=== PATIENT | female | born 1970 | race Caucasian/White ===

== ENCOUNTER → 2016-11-22 | Outpatient (CLI) | payer OTHER ==
--- NOTE | 2016-11-22 08:47 | MA ---
Screening Digital Mammogram Clinical Indications: Routine screening. Technique: Standard cephalocaudal and mediolateral oblique projections are obtained. This examinati on is processed by the [facility] computer aided detection system. Comparison: December 2010, February 2012, March 2013, April 2014, October 2015 (screening and diagnostic) Breast density: B; There are scattered fibroglandular densities. Findings: CAD was reviewed. There is new asymmetrical density in the right axillary segment seen only on the oblique lateral view. On the current CC view there is again asymmetrical density in the outer right breast which returned to normal on spot views performed on November 18, 2015.. Left breast is s table and unremarkable. Impression: Asymmetrical densities in the right axillary segment and outer right breast.. BI-RADS 0. Additional imaging right breast required.. Recommendation: Spot compression views. If persistent, attempt to localize in the orthogonal plane m ammographically, and then proceed to ultrasound for further localization and characterization. [facility] will send a result letter to the patient. Negative mammography should not preclude additional workup of a clinically suspicious finding. The patient's information is entered into a reminder system with a target due date for her next mammo gram.
== END ==
LOC: BRMIMAGING 08:00
DX: Z12.31 Encounter for screening mammogram for malignant neoplasm of breast (principal)
CPT/HCPCS: G0202

== ENCOUNTER → 2016-12-06 | Outpatient (CLI) | payer OTHER | LOC: CIMAGING 13:43 | DX: R92.2 Inconclusive mammogram (principal) | CPT/HCPCS: 76641-PO; G0206 ==

== ENCOUNTER → 2017-05-02 | Outpatient (CLI) | payer OTHER | LOC: CIMAGING 12:38 | PROVIDERS: ATTEND Family Medicine | DX: Z12.39 Encounter for other screening for malignant neoplasm of breast (principal); R92.8 Other abnormal and inconclusive findings on diagnostic imaging of breast | CPT/HCPCS: G0206 ==

== ENCOUNTER → 2017-10-25 | Outpatient (CLI) | payer OTHER | LOC: CIMAGING 13:04 | PROVIDERS: ATTEND Family Medicine | DX: R92.8 Other abnormal and inconclusive findings on diagnostic imaging of breast (principal) | CPT/HCPCS: 76641-PO ==

== ENCOUNTER → 2017-11-08 | Outpatient (CLI) | payer OTHER ==
[~2017-11-08] MED LIST: GADOBUTROL 10 ML VIAL IVP ONE
== END ==
LOC: FIMAGING 08:15
PROVIDERS: ATTEND Surgery
DX: R92.8 Other abnormal and inconclusive findings on diagnostic imaging of breast (principal)
CPT/HCPCS: 0159T; 77059; A9585; C8908

== ENCOUNTER → 2017-11-22 | Outpatient (CLI) | payer OTHER ==
[~2017-11-22] MED LIST changes: +BUPIVACAINE 0.25% 30 ML SDV ONE; +BUPIVACAINE 0.5% 30 ML SDV ONE; +LIDOCAINE 1% 5 ML SDV ONE; +NA BICARBONATE 50 MEQ/50 ML VIAL ONE
== END ==
LOC: FIMAGING 07:18
PROVIDERS: ATTEND Surgery
PROC: 0HHT31Z Insertion of Radioactive Element into Right Breast, Percutaneous Approach (ICD-10-PCS; principal; 2017-11-22)
DX: N63.10 Unspecified lump in the right breast, unspecified quadrant (principal)
CPT/HCPCS: A9585

== ENCOUNTER → 2018-05-23 | Outpatient (CLI) | payer OTHER | DX: N63.11 Unspecified lump in the right breast, upper outer quadrant (principal); Z09 Encounter for follow-up examination after completed treatment for conditions other than malignant neoplasm ==

== ENCOUNTER → 2018-11-21 | Outpatient (CLI) | payer OTHER | LOC: FIMAGING 14:10 | PROVIDERS: ATTEND Surgery | DX: Z12.31 Encounter for screening mammogram for malignant neoplasm of breast (principal) ==

== ENCOUNTER 2018-12-13 09:12 | Emergency (ER) | payer OTHER ==
[2018-12-13] MEDS ORDERED: ONDANSETRON 4 MG/2 ML VIAL IVP ONE (09:56)
--- NOTE | 2018-12-13 09:56 | EDPHY ---
H & P Stated Complaint: Pt. state rlq to rt low/flank,nausea x2 days, this am increase in nausea, Time Seen by Provider: 12/13/18 09:40 HPI/ROS: 48 yo F with hx of diverticulitis last acted up last summer, has been having right flank and upper quadrant pain that feels similar to prior episodes. No diarrhea, occasional constipation but uses miralax regularly. No fever or chills. Prior hx of laparoscopic hernia repair, csection Review of systems As per HPI General no fever no chills no weakness HEENT no eye pain no eye discharge. No eye redness, no sore throat Respiratory no cough, no shortness of breath Cardiac no chest pain, no peripheral edema GI positive abdominal pain, no diarrhea, no constipation, no nausea, no vomiting positive flank pain, no hematuria, no dysuria Musculoskeletal no myalgias, no joint pain Heme no easy bruising, no easy bleeding Endo no polyuria, no polydipsia Skin no rashes, no pruritus Neuro no syncope, no dizziness, no headaches Psych is no suicidal ideation, no homicidal ideation Source: Patient Exam Limitations: No limitations - Personal History LMP (Females 10-55): Over 28 Days Ago Current Tetanus Diphtheria and Acellular Pertussis (TDAP): Yes - Medical/Surgical History Hx Asthma: Yes Hx Chronic Respiratory Disease: No Hx Diabetes: No Hx Cardiac Disease: No Hx Renal Disease: No Hx Cirrhosis: No Hx Alcoholism: No Hx HIV/AIDS: No Hx Splenectomy or Spleen Trauma: No Other PMH: ENDOMETRIAL ABLATION/TRIGEMINAL NEURALGIA/GERD/DIVERTICULITIS. Surg- lumpectomy,hernia (bilat) inguinal - Social History Smoking Status: Never smoked - Physical Exam Exam: 48-year-old female alert and oriented no acute distress nontoxic appearance, afebrile HEENT atraumatic normocephalic, extraocular muscles intact, anicteric Oropharynx negative for erythema negative exudate, tolerating her own secretions Neck supple no meningismus Lungs clear to auscultation bilaterally Heart regular rate and rhythm without murmur rub or gallop Abdomen nondistended normoactive bowel sounds soft mild right upper quadrant tenderness to palpation no rebound no guarding Back no CVA tenderness, no step-offs, no spinal tenderness Extremities no cyanosis clubbing or edema Neuro alert and oriented, no focal deficits Constitutional: Initial Vital Signs Temperature (C) 36.9 C 12/13/18 09:24 Heart Rate 61 12/13/18 09:24 Respiratory Rate 16 12/13/18 09:24 Blood Pressure 136/80 H 12/13/18 09:24 O2 Sat (%) 94 12/13/18 09:24 O2 Delivery Mode Room Air Allergies/Adverse Reactions: Sulfa (Sulfonamide Antibiotics) Allergy (Verified 12/13/18 09:22) Home Medications: Medication Instructions Recorded Janett Allergy 05/05/18 DEXILANT 05/05/18 Gabapentin 05/05/18 Singulair 12/13/18 Zantac 12/13/18 Medical Decision Making - Diagnostics Imaging Results: Imaging Impressions Abdomen CT 12/13/18 10:08 Impression: 1. No CT findings for appendicitis or diverticulitis. 2. Possible pelvic congestion syndrome. 2.5 cm simple appearing cyst in the left ovary. Results called and discussed with Roseline Bower MD on 12/13/2018 at 11:03 a.m. ED Course/Re-evaluation: Patient seen and evaluated for right flank/right upper quadrant abdominal pain similar to her prior diverticulitis. 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 as needed Continue bowel regimen for constipation Differential Diagnosis: Differential diagnosis considered but not limited to Renal colic, acute ureterolithiasis, pyelonephritis, urinary tract infection, cholecystitis, cholelithiasis, biliary colic, diverticulitis, appendicitis - Data Points Laboratory Results: 12/13/18 12/13/18 10:05 10:04 POC Sodium 143 mEq/L mEq/L (135-145) POC Potassium 4.2 mEq/L mEq/L (3.3-5.0) POC Chloride 107.0 mEq/L mEq/L (97-110) POC Total CO2 27 mEq/L mEq/L (22-31) POC BUN 11 mg/dL mg/dL (7-23) POC Creatinine 0.8 mg/dL mg/dL (0.6-1.0) POC Glucose 92 mg/dL mg/dL (70-100) POC Lactic Acid Mahamed 0.6 mmol/L L mmol/L (0.7-2.1) POC Calcium 9.8 mg/dL mg/dL (8.5-10.4) Medications Given: Discontinued Medications Sodium Chloride (Ns) 1,000 mls @ 0 mls/hr IV ONCE ONE PRN Reason: Wide Open Stop: 12/13/18 09:57 Last Admin: 12/13/18 11:50 Dose: Not Given Ondansetron HCl (Zofran) 4 mg IVP EDNOW ONE Stop: 12/13/18 09:57 Last Admin: 12/13/18 10:22 Dose: Not Given Point of Care Test Results: CBC CBC Collection Date 12/13/18 CBC Collection Time 09:55 WBC 4.86 RBC 4.86 HGB 14.3 HCT 42.4 PLT 291 Neut # 2.92 Neut 60.2 LYMPH # 1.30 LYMPH 26.7 MCV 87.2 Chemistry 12/13/18 10:04 POC Sodium 143 mEq/L mEq/L (135-145) POC Potassium 4.2 mEq/L mEq/L (3.3-5.0) POC Chloride 107.0 mEq/L mEq/L (97-110) POC Total CO2 27 mEq/L mEq/L (22-31) POC BUN 11 mg/dL mg/dL (7-23) POC Creatinine 0.8 mg/dL mg/dL (0.6-1.0) POC Glucose 92 mg/dL mg/dL (70-100) POC Calcium 9.8 mg/dL mg/dL (8.5-10.4) Blood Gas/Lactic Acid-Venous 12/13/18 10:05 POC Lactic Acid Mahamed 0.6 mmol/L L mmol/L (0.7-2.1) Urine Collection Date 12/13/18 Collection Time 09:28 HCG Results Negative Urine Dip Collection Date 12/13/18 Collection Time 09:15 Specific [place] (1.002-1.030) 1.010 PH (5.0-7.5) 7.0 Leukocytes (Negative) Negative Nitrites (Negative) Negative Protein (Negative) Negative Glucose (Negative) Negative Ketones (Negative) Negative Urobilnogen (0.2-1.0 EU) 0.2 Bilirubin (Negative) Negative Blood (Negative) Negative Departure - Departure Disposition: Home, Routine, Self-Care Clinical Impression: Right flank pain, Constipation Condition: Good Instructions: Constipation (ED), High Fiber Diet (ED), Flank Pain (ED) Referrals: Malgorzata Prater MD [Primary Care Provider] - As per Instructions
[2018-12-13] MEDS ORDERED: IOPAMIDOL (ISOVUE-300) 100 ML BTL ONE (10:14)
[2018-12-13] MEDS: NS 1,000 ML IV ONE ×2 (10:19→11:50)
[2018-12-13 11:42] VITALS: BP 110/71
== END 2018-12-13 11:41 | disposition home or self-care (01) ==
LOC: CED 09:12
DX: R10.9 Unspecified abdominal pain (principal); K59.00 Constipation, unspecified
CPT/HCPCS: 74177-PO; 80048-ER; 83605-ER; J2405; Q9967